=== PATIENT | female | born 1985 | race American Indian/Alaskan Native ===

== ENCOUNTER 2016-10-26 22:55 | Emergency (ER) | payer SELFPAY ==
[2016-10-27 00:57] LABS: Hematocrit 46.3 % (30.3-42.9); Hemoglobin 14.9 gm/dl (10.1-14.3); Mean Corpuscular HGB Conc 32 % (30-34); Mean Corpuscular Hemoglobin 29 pg (28-32); Mean Corpuscular Volume 89 fl (79-97); Platelet Count 197 K/mm3 (140-440); Red Blood Count 5.22 M/mm3 (3.65-5.03)
[2016-10-27 01:14] LABS: Amylase 115 units/L (27-131); Anion Gap 26 mmol/L; BUN/Creatinine Ratio 8.33; Blood Urea Nitrogen 5 mg/dL (7-17); Calcium 9.9 mg/dL (8.4-10.2); Carbon Dioxide 20 mmol/L (22-30); Glucose 65 mg/dL (65-100); Lipase 85 units/L (13-60); Sodium 143 mmol/L (137-145)
[2016-10-27 02:46] LABS: Basophils % (Manual) 0 % (0.0-1.8); Blastocytes % (Manual) 0 %; Eosinophils % (Manual) 0 % (0.0-4.3)
[2016-10-27 02:47] LABS: Diff Status Complete; Platelet Estimate Consistent w Auto; RBC Morphology Normal
[2016-10-27] MEDS ORDERED: NACL 0.9% 1000 ML 1,000 ML IV ONE (03:13)
[2016-10-27 03:34] LABS: Bacteria,Urine 1+ /HPF (Negative); Bilirubin,Urine NEG (Negative); Blood,Urine SM (Negative); Ketones,Urine TR mg/dL (Negative); Leukocyte Esterase,Urine SM (Negative); Mucus,Urine 2+ /HPF; Nitrite,Urine NEG (Negative); Protein,Urine <15 mg/dL mg/dL (Negative); Urobilinogen,Urine < 2.0 mg/dL (<2.0)
--- NOTE | 2016-10-27 03:35 | Emergency Department Report ---
HPI - General Chief Complaint: Abdominal Pain - HPI HPI: This is a 31-year-old female presents to ED complaining of left-sided lower side pain 1 day. Patient states she started having intermittent pain localized to the left abdominal region. Patient denies any fevers/chills/nausea /vomiting/chest pain/dizziness/dysuria/frequency or any other problems. ED Past Medical Hx - Past Medical History Previous Medical History?: No - Surgical History Past Surgical History?: Yes Additional Surgical History: - Social History Smoking Status: Current Every Day Smoker Substance Use Type: Alcohol - Medications Home Medications: Home Medications Medication Instructions Recorded Confirmed Last Taken Type Acetaminophen [Acetaminophen 8 650 mg PO Q6H #30 tablet.er 10/27/16 Unknown Rx Hour] ED Review of Systems ROS: Stated complaint: GENERAL PAIN Other details as noted in HPI Constitutional: denies: chills, fever Eyes: denies: eye pain, eye discharge, vision change ENT: denies: ear pain, throat pain, dental pain, hearing loss Respiratory: denies: cough, shortness of breath, wheezing Cardiovascular: denies: chest pain, palpitations Endocrine: no symptoms reported Gastrointestinal: denies: abdominal pain, nausea, diarrhea Genitourinary: denies: urgency, dysuria, discharge Musculoskeletal: denies: back pain, joint swelling, arthralgia Skin: denies: rash, lesions Neurological: denies: headache, weakness, paresthesias Psychiatric: denies: anxiety, depression Hematological/Lymphatic: denies: easy bleeding, easy bruising Physical Exam - Physical Exam Vital Signs: Vital Signs 10/27/16 00:18 Temperature 97.4 F L Pulse Rate 91 H Respiratory 18 Rate Blood Pressure 122/88 Blood Pressure 122/88 [Right] O2 Sat by Pulse 100 Oximetry Physical Exam: GENERAL: Alert and oriented x3, no apparent distress, Normal Gait, atraumatic. HEAD: Head is normocephalic and a-traumatic. NECK: Supple. Non edematous,No lymphadenopathy or thyromegaly. No C-spine tenderness LUNGS: Symetrical with respiration, No wheezing, no rales or crackles, CTAB. HEART: S1, S2 present, regular rate and rhythm without murmur, no rubs, no gallops. Non tender to palpation ABDOMEN: No organomegaly was noted,Positive bowel sounds, soft, and non- distended. . Nontender to palpation on all Quadrants, BACK: Full range of motion, no spinal tenderness, nontender to palpation.NO CVA tenderness. EXTREMITIES/MUSCULOSKELETAL: No cyanosis, clubbing, rash, lesions or edema. Full ROM bilaterally. UE/LE Pulses 2+ bilaterally. PSYCHIATRIC: Mood is congruent with affect, denies suicidal or homicidal ideations. SKIN: Warm and dry, No lesions, No ulceration or induration present. ED Course Vital Signs 10/27/16 00:18 Temperature 97.4 F L Pulse Rate 91 H Respiratory 18 Rate Blood Pressure 122/88 Blood Pressure 122/88 [Right] O2 Sat by Pulse 100 Oximetry ED Medical Decision Making - Lab Data Result diagrams: 10/27/16 00:26 10/27/16 00:26 Laboratory Last Values WBC 15.0 K/mm3 (4.5-11.0) H 10/27/16 00:26 RBC 5.22 M/mm3 (3.65-5.03) H 10/27/16 00:26 Hgb 14.9 gm/dl (10.1-14.3) H 10/27/16 00:26 Hct 46.3 % (30.3-42.9) H 10/27/16 00:26 MCV 89 fl (79-97) 10/27/16 00:26 MCH 29 pg (28-32) 10/27/16 00:26 MCHC 32 % (30-34) 10/27/16 00:26 RDW 15.0 % (13.2-15.2) 10/27/16 00:26 Plt Count 197 K/mm3 (140-440) 10/27/16 00:26 Add Manual Diff Complete 10/27/16 00:26 Total Counted 100 10/27/16 00:26 Seg Neutrophils % Pipe [employer]itter Supervisor Maintenance 10/27/16 00:26 Seg Neuts % (Manual) 81.0 % (40.0-70.0) H 10/27/16 00:26 Band Neutrophils % 6.0 % 10/27/16 00:26 Lymphocytes % (Manual) 9.0 % (13.4-35.0) L 10/27/16 00:26 Reactive Lymphs % (Man) 0 % 10/27/16 00:26 Monocytes % (Manual) 4.0 % (0.0-7.3) 10/27/16 00:26 Eosinophils % (Manual) 0 % (0.0-4.3) 10/27/16 00:26 Basophils % (Manual) 0 % (0.0-1.8) 10/27/16 00:26 Metamyelocytes % 0 % 10/27/16 00:26 Myelocytes % 0 % 10/27/16 00:26 Promyelocytes % 0 % 10/27/16 00:26 Blast Cells % 0 % 10/27/16 00:26 Nucleated RBC % Not Reportable 10/27/16 00:26 Seg Neutrophils # Man 12.2 K/mm3 (1.8-7.7) H 10/27/16 00:26 Band Neutrophils # 0.9 K/mm3 10/27/16 00:26 Lymphocytes # (Manual) 1.4 K/mm3 (1.2-5.4) 10/27/16 00:26 Abs React Lymphs (Man) 0.0 K/mm3 10/27/16 00:26 Monocytes # (Manual) 0.6 K/mm3 (0.0-0.8) 10/27/16 00:26 Eosinophils # (Manual) 0.0 K/mm3 (0.0-0.4) 10/27/16 00:26 Basophils # (Manual) 0.0 K/mm3 (0.0-0.1) 10/27/16 00:26 Metamyelocytes # 0.0 K/mm3 10/27/16 00:26 Myelocytes # 0.0 K/mm3 10/27/16 00:26 Promyelocytes # 0.0 K/mm3 10/27/16 00:26 Blast Cells # 0.0 K/mm3 10/27/16 00:26 WBC Morphology Not Reportable 10/27/16 00:26 Hypersegmented Neuts Not Reportable 10/27/16 00:26 Hyposegmented Neuts Not Reportable 10/27/16 00:26 Hypogranular Neuts Not Reportable 10/27/16 00:26 Smudge Cells Not Reportable 10/27/16 00:26 Toxic Granulation Not Reportable 10/27/16 00:26 Toxic Vacuolation Not Reportable 10/27/16 00:26 Dohle Bodies Not Reportable 10/27/16 00:26 Pelger-Huet Anomaly Not Reportable 10/27/16 00:26 Ugo Rods Not Reportable 10/27/16 00:26 Platelet Estimate Consistent w auto 10/27/16 00:26 Clumped Platelets Not Reportable 10/27/16 00:26 Plt Clumps, EDTA Not Reportable 10/27/16 00:26 Large Platelets Not Reportable 10/27/16 00:26 Giant Platelets Not Reportable 10/27/16 00:26 Platelet Satelliting Not Reportable 10/27/16 00:26 Plt Morphology Comment Not Reportable 10/27/16 00:26 RBC Morphology Normal 10/27/16 00:26 Dimorphic RBCs Not Reportable 10/27/16 00:26 Polychromasia Not Reportable 10/27/16 00:26 Hypochromasia Not Reportable 10/27/16 00:26 Poikilocytosis Not Reportable 10/27/16 00:26 Anisocytosis Not Reportable 10/27/16 00:26 Microcytosis Not Reportable 10/27/16 00:26 Macrocytosis Not Reportable 10/27/16 00:26 Spherocytes Not Reportable 10/27/16 00:26 Pappenheimer Bodies Not Reportable 10/27/16 00:26 Sickle Cells Not Reportable 10/27/16 00:26 Target Cells Not Reportable 10/27/16 00:26 Tear Drop Cells Not Reportable 10/27/16 00:26 Ovalocytes Not Reportable 10/27/16 00:26 Helmet Cells Not Reportable 10/27/16 00:26 [place] Bodies Not Reportable 10/27/16 00:26 [place] Rings Not Reportable 10/27/16 00:26 [place] Cells Not Reportable 10/27/16 00:26 Bite Cells Not Reportable 10/27/16 00:26 Crenated Cell Not Reportable 10/27/16 00:26 Elliptocytes Not Reportable 10/27/16 00:26 Acanthocytes (Spur) Not Reportable 10/27/16 00:26 Rouleaux Not Reportable 10/27/16 00:26 Hemoglobin C Crystals Not Reportable 10/27/16 00:26 Schistocytes Not Reportable 10/27/16 00:26 Malaria parasites Not Reportable 10/27/16 00:26 Benitez Bodies Not Reportable 10/27/16 00:26 Hem Pathologist Commnt No 10/27/16 00:26 Sodium 143 mmol/L (137-145) 10/27/16 00:26 Potassium 4.0 mmol/L (3.6-5.0) 10/27/16 00:26 Chloride 101.0 mmol/L (98-107) 10/27/16 00:26 Carbon Dioxide 20 mmol/L (22-30) L 10/27/16 00:26 Anion Gap 26 mmol/L 10/27/16 00:26 BUN 5 mg/dL (7-17) L 10/27/16 00:26 Creatinine 0.6 mg/dL (0.7-1.2) L 10/27/16 00:26 Estimated GFR > 60 ml/min 10/27/16 00:26 BUN/Creatinine Ratio 8.33 % 10/27/16 00:26 Glucose 65 mg/dL (65-100) 10/27/16 00:26 Calcium 9.9 mg/dL (8.4-10.2) 10/27/16 00:26 Amylase 115 units/L (27-131) 10/27/16 00:26 Lipase 85 units/L (13-60) H 10/27/16 00:26 Urine Color Yellow (Yellow) 10/27/16 03:15 Urine Turbidity Clear (Clear) 10/27/16 03:15 Urine pH 5.0 (5.0-7.0) 10/27/16 03:15 Ur Specific [place] 1.011 (1.003-1.030) 10/27/16 03:15 Urine Protein <15 mg/dl mg/dL (Negative) 10/27/16 03:15 Urine Glucose (UA) Neg mg/dL (Negative) 10/27/16 03:15 Urine Ketones Tr mg/dL (Negative) 10/27/16 03:15 Urine Blood Sm (Negative) 10/27/16 03:15 Urine Nitrite Neg (Negative) 10/27/16 03:15 Urine Bilirubin Neg (Negative) 10/27/16 03:15 Urine Urobilinogen < 2.0 mg/dL (<2.0) 10/27/16 03:15 Ur Leukocyte Esterase Sm (Negative) 10/27/16 03:15 Urine WBC (Auto) 3.0 /HPF (0.0-6.0) 10/27/16 03:15 Urine RBC (Auto) 4.0 /HPF (0.0-6.0) 10/27/16 03:15 U Epithel Cells (Auto) 2.0 /HPF (0-13.0) 10/27/16 03:15 Urine Bacteria (Auto) 1+ /HPF (Negative) 10/27/16 03:15 Hyaline Casts 1 /LPF 10/27/16 03:15 Urine Mucus 2+ /HPF 10/27/16 03:15 Urine HCG, Qual Negative (Negative) 10/27/16 03:15 - Medical Decision Making 31-year-old female presents with acute pyelonephritis vs Acute Cystitis ED course: CBC, CMP, urinalysis, urine test collected CBC shows elevated white blood count, CMP shows this low BUN/creatinine, urinalysis shows positive bacteria, leukocyte esterase, urine test negative Discussed the results with the patient. 1 L normal saline administered to patient. Patient received Rocephin in ED. Patient received Tylenol in the ED for pain. Vital signs are normalized patient is in no acute distress. Discussed the patient she was treated in the ED. Discussed pain medication at home as needed for pain Discussed the patient to follow-up with primary care physician. Critical care attestation.: If time is entered above; I have spent that time in minutes in the direct care of this critically ill patient, excluding procedure time. ED Disposition Clinical Impression: Pyelonephritis, acute UTI (urinary tract infection) Qualifiers: Urinary tract infection type: acute cystitis Hematuria presence: without hematuria Qualified Code(s): N30.00 - Acute cystitis without hematuria Disposition: TO HOME OR SELFCARE Is pt being admited?: No Does the pt Need Aspirin: No Condition: Stable Instructions: Urinary Tract Infection in Women (ED), Acute Pyelonephritis (ED) , Abdominal Pain (ED), Flank Pain (ED) Additional Instructions: Follow-up with primary care physician. If symptoms worsen return to ED Prescriptions: Acetaminophen [Acetaminophen 8 Hour] 650 mg PO Q6H #30 tablet.er Referrals: BOB JACINTO MD [Primary Care Provider] - 3-5 Days BRI HE MD [Referring] - 3-5 Days [facility] [Outside] - 3-5 Days [facility] [Outside] - 3-5 Days Forms: Accompanied Note, Work/School Release Form(ED) Time of Disposition: 05:23
[2016-10-27] MEDS ORDERED: ROCEPHIN IV ONE (04:11)
[2016-10-27] MEDS ORDERED: XYLOCAINE 1% MPF 5 mL ONE (04:28)
[2016-10-27 05:05] VITALS: BP 131/87
[2016-10-27] MEDS ORDERED: TYLENOL ONE (05:11)
[2016-10-27] MEDS ORDERED: TYLENOL PO ONE (05:15)
== END 2016-10-27 05:16 | disposition home or self-care (01) ==
LOC: ED 22:55
DX: N10 Acute pyelonephritis (principal); N30.00 Acute cystitis without hematuria; F17.200 Nicotine dependence, unspecified, uncomplicated; Z98.890 Other specified postprocedural states
CPT/HCPCS: 36415; 80048; 81001; 81025; 82150; 83690; 85007; 85025; 96361; 96374; 99283; J0696; J7030